=== PATIENT | male | born 2000 | race American Indian/Alaskan Native ===

== ENCOUNTER 2020-05-12 13:24 | Emergency (ER) | payer BC ==
[2020-05-12 14:31] VITALS: BP 110/71
--- NOTE | 2020-05-12 14:49 | Emergency Department Report ---
ED Lower Extremity HPI - General Chief Complaint: Extremity Injury, Lower Stated Complaint: RT LEG INJURY Time Seen by Provider: 05/12/20 14:45 Source: patient Mode of arrival: Ambulatory Limitations: No Limitations - History of Present Illness Initial Comments: Patient is a 19-year-old male presents emergency room with complaints of a right knee injury that occurred yesterday. He states that he was playing basketball on an indoor basketball court and he states that the court was wet and he slipped and fell directly onto the medial surface of the right knee. He states since then he has had right knee pain and swelling. He states that he did sprain his knee when he was 13 years old but denies any fracture or surgeries of any. He denies any numbness or weakness. He is ambulatory. No past medical history. No allergies to medications. - Related Data Previous Rx's Medication Instructions Recorded Last Taken Type Ibuprofen [Motrin 600 MG tab] 600 mg PO Q8H PRN #20 tablet 05/12/20 Unknown Rx Allergies Allergy/AdvReac Type Severity Reaction Status Date / Time No Known Allergies Allergy Unverified 05/12/20 14:29 ED Review of Systems ROS: Stated complaint: RT LEG INJURY Other details as noted in HPI Comment: All other systems reviewed and negative ED Past Medical Hx - Past Medical History Previous Medical History?: No - Surgical History Past Surgical History?: No - Medications Home Medications: Home Medications Medication Instructions Recorded Confirmed Last Taken Type Ibuprofen [Motrin 600 MG tab] 600 mg PO Q8H PRN #20 tablet 05/12/20 Unknown Rx ED Physical Exam - General Limitations: No Limitations General appearance: alert, in no apparent distress - Head Head exam: Present: atraumatic, normocephalic - Eye Eye exam: Present: normal appearance - ENT ENT exam: Present: mucous membranes moist - Respiratory Respiratory exam: Absent: respiratory distress, accessory muscle use - Extremities Exam Extremities exam: Present: other (ttp and edema present to the right medial knee, mild ecchymosis, no deformity, no obvious joint laxity, FROM of the RLE with discomfort upon valgus stress, neurovascularly intact ) - Neurological Exam Neurological exam: Present: alert, oriented X3 - Psychiatric Psychiatric exam: Present: normal affect, normal mood - Skin Skin exam: Present: warm, dry, intact ED Course Vital Signs 05/12/20 14:29 Temperature 97.8 F Pulse Rate 76 Respiratory 18 Rate Blood Pressure 110/71 [Right] O2 Sat by Pulse 96 Oximetry ED Lower Extremity MDM - Radiology Data Radiology results: report reviewed Ordering Physician: CHUCHO BURGER Date of Service: 05/12/20 Procedure(s): XR knee 3V RT Accession Number(s): [id number] cc: CHUCHO BURGER Fluoro Time In Minutes: RIGHT KNEE 3 VIEWS INDICATION / CLINICAL INFORMATION: right knee pain after slip and fall. COMPARISON: None available. FINDINGS: No fracture or other skeletal abnormality. No evidence of joint effusion or hemarthrosis. Signer Name: Rob Young MD Signed: 05/12/2020 4:44 PM Workstation Name: [id number] Transcribed By: TM Dictated By: Rob Young MD Electronically Authenticated By: Rob Young MD Signed Date/Time: 05/12/201643 DD/ 43 TD/TT: - Medical Decision Making Patient is a 19-year-old male presents emergency room with complaints of a right knee injury that occurred yesterday. He states that he was playing basketball on an indoor basketball court and he states that the court was wet and he slipped and fell directly onto the medial surface of the right knee. He states since then he has had right knee pain and swelling. He states that he did sprain his knee when he was 13 years old but denies any fracture or surgeries of any. He denies any numbness or weakness. He is ambulatory. No past medical history. No allergies to medications. vitals are normal. on exam: ttp and edema present to the right medial knee, mild ecchymosis, no deformity, no obvious joint laxity, FROM of the RLE with discomfort upon valgus stress, neurovascularly intact. XR right knee: No fracture or other skeletal abnormality. No evidence of joint effusion or hemarthrosis. Discussed all findings with patient and answered questions. Patient placed in Darrell wrap by nurse and remained neurovascularly intact. Patient given prescription for ibuprofen. Discussed the importance of orthopedic follow-up with patient. It does appear most consistent with knee sprain. advised pt please take medication as prescribed. do not wear darrell bandage too tightly or at night while sleeping. may ice for 15 minutes at a time, rest, elevation of the leg. Follow-up with orthopedic doctor. Return to emergency room for any new or worsening symptoms. - Differential Diagnosis Sprain, strain, fracture, dislocation, contusion, effusion Critical care attestation.: If time is entered above; I have spent that time in minutes in the direct care of this critically ill patient, excluding procedure time. ED Disposition Clinical Impression: Right knee sprain Qualifiers: Encounter type: initial encounter Involved ligament of knee: unspecified ligament Qualified Code(s): S83.91XA - Sprain of unspecified site of right knee, initial encounter Disposition: TO HOME OR SELFCARE Is pt being admited?: No Does the pt Need Aspirin: No Condition: Stable Instructions: Knee Sprain, Adult Additional Instructions: please take medication as prescribed. do not wear darrell bandage too tightly or at night while sleeping. may ice for 15 minutes at a time, rest, elevation of the leg. Follow-up with orthopedic doctor. Return to emergency room for any new or worsening symptoms. Prescriptions: Ibuprofen [Motrin 600 MG tab] 600 mg PO Q8H PRN #20 tablet PRN Reason: Pain Referrals: PRIMARY MD BRYANT [Primary Care Provider] - 2-3 Days RORO YOUNG MD [Staff Physician] - 2-3 Days [facility] [Provider Group] - 2-3 Days Time of Disposition: 16:55 Print Language: YI
--- NOTE | 2020-05-12 16:48 | XRay Report ---
RIGHT KNEE 3 VIEWS INDICATION / CLINICAL INFORMATION: right knee pain after slip and fall. COMPARISON: None available. FINDINGS: No fracture or other skeletal abnormality. No evidence of joint effusion or hemarthrosis. Signer Name: Rob Young MD Signed: 05/12/2020 4:44 PM Workstation Name: [id number]
== END 2020-05-12 17:09 | disposition home or self-care (01) ==
LOC: ED 13:24
DX: S83.91XA Sprain of unspecified site of right knee, initial encounter (principal); Z79.1 Long term (current) use of non-steroidal anti-inflammatories (NSAID); W01.0XXA Fall on same level from slipping, tripping and stumbling without subsequent striking against object, initial encounter; Y93.89 Activity, other specified; Y92.89 Other specified places as the place of occurrence of the external cause; Y99.8 Other external cause status